=== PATIENT | male | born 1960 | race Caucasian/White ===

== ENCOUNTER → 2020-11-04 | Outpatient (CLI) | payer BC | LOC: EXRD 10:58 | DX: M79.642 Pain in left hand (principal) | CPT/HCPCS: 73130 ==

== ENCOUNTER 2020-11-30 11:51 | Emergency (ER) | payer BC ==
[~2020-11-30] VITALS: Ht 185.4 cm; Wt 117.9 kg
[2020-11-30] MEDS ORDERED: DELSYM30 MG/5 ML PO (14:31)
== END 2020-11-30 14:33 | disposition home or self-care (01) ==
LOC: ER1 11:51
DX: U07.1 COVID-19 (principal); Z23 Encounter for immunization; E78.5 Hyperlipidemia, unspecified; Z90.49 Acquired absence of other specified parts of digestive tract
CPT/HCPCS: 99284; M0243

== ENCOUNTER → 2021-09-19 | Outpatient (CLI) | payer BC ==
[~2021-09-19] MED LIST: DELSYM30 MG/5 ML PO
[2021-09-19 17:11] LABS: HEMOGLOBIN 14.1 gm/dl (14.0-17.5); RED BLOOD COUNT 4.56 M/UL (4.20-5.50); WHITE BLOOD COUNT 6.9 K/UL (4.5-11.0)
[2021-09-19 17:33] LABS: BUN/CREATININE RATIO 19 (0-10)
== END ==
LOC: LAB 16:41
PROVIDERS: Nurse Practitioner Family
DX: R19.7 Diarrhea, unspecified (principal)
CPT/HCPCS: 36415; 80053; 85025